=== PATIENT | male | born 1955 | race Caucasian/White ===

== ENCOUNTER 2025-02-28 11:39 | Emergency (ER) | payer OTHER ==
--- OUTSIDE RECORDS SUMMARY | 2025-02-28 11:43 | XMS REPORT | Continuity of Care Document ---
Author Name Unknown Address [address] [place] [address] [facility] Address [address] [place] [address] Care Team Providers Care Plasma Table Operator Name Role Phone SINTIA TILLEY Primary Care Physician Unavailab DR BENEDICT Mix Attending Clinician SINTIA Renae Attending Clinician DR BENEDICT Reyna Admitting Clinician SINTIA Renae Admitting Clinician Unavailable Payers Payer Name Policy Type Policy Number Effective Date Expirati on Date Source MEDICARE - OP [id number] MEDICARE - OP [id number] Encounters Start Date/Time End Date/Time Encounter Type Admission Type Attending Clinicians Care Facility Care Department Encounter ID Source 2024-08-12 07:20:00 2024-08-12 23:00:00 Outpatient [id number] 2024-08-12 07:20:00 2024-08-12 23:00:00 Outpatient [facility] [id number] [facility] karen 2024-08-12 07:20:00 2024-08-12 07:20:00 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 08/12/2024 SNOMED-CT 1.3.6.1.4 .[id number] 1.3.6.1.4.1 .[id number] 2024-01-30 08:05:00 2024-01-30 23:00:00 Outpatient N [facility] [id number] [facility] le 2024-01-20 09:40:00 2024-01-20 23:00:00 Outpatient N [facility] [id number] [facility] Results Test Description Test Time Test Comments Results Result Co mments Source LIVER [id number] 07:26:00* Test Item Value Reference Range Interpretation Comme [facility] TOTAL PROTEIN (test code = T OTAL PROTEIN) 6.7 g/dL 5.8-8.1 ALBUMIN (test code = ALBUMIN) 4.0 g/dL 3.4-4.8 GLOBULIN (test code = GLOBULIN) 2.7 g/dL 1.9-3.7 A/G RATIO (test code = A/G RATIO) 1 U/L 5-34 L TOTAL BILI (test code = 1974-) 0.4 mg/dL 0.2-1.2 DIRECT BILI (test code = 1967-7) 0.1 mg/dL 0.1-0.3 INDIRECT BILI (test code = I NDIRECT BILI) 0.3 mg/dL ALKALINE PHOS (test code = A LKALINE PHOS) 92 U/L 40-150 SGOT/AST (test code = 1920-8) 20 U/L 5-34 SGPT/ALT (test code = 1744-2) 23 U/L 0-55 VITAMIN D 25 [id number] 07:26:00* Test Item Value Reference Range Interpretation Comme [facility] VITAMIN D (test code = 1988-3) 85.6 ng/ml 0-30 H MICROALBUMIN CREATININE [id number] 07:26:00CREAT UR L=0 H=0 MICROALBUMIN L=0 H=0 MICROALBUMIN/CREAT L=0 [id number] 07:26:00SPEC SOURCE: RANDOM COLOR Yellow NORMAL: Straw 5778-6 LOINC CLARITY Clear NORMAL: Clear 5767-9 LOINC SPEC GRAVITY 1.025 1.005 - 1.020 5811-5 LOINC A pH 6.0 5.5 - 7.5 5803-2 LOINC GLUCOSE Negative NORMAL: Negative 5792-7 LOINC BILIRUBIN Negative NORMAL: Negative 5770-3 LOINC KETONE Negative NORMAL: Negative 2514-8 LOINC PROTEIN Negative NORMAL: Negative 90210-1 LOINC NITRITE Negative NORMAL: Negative 5802-4 LOINC BLOOD Small NORMAL: Negative 00002-4 LOINC LEUK EST Trace NORMAL: Negative 5799-2 LOINC UROBILINOGEN 0.2 0.2 - 1.0 mg/dL 73957-8 LOINC MICROSCOPIC See Below WBC 5 - 10 NORMAL: None Seen 5821-4 LOINC RBC 3 - 5 NORMAL: None Seen 77749-6 LOINC EPITHELIAL Rare NORMAL: None Seen BACTERIA Rare/hpf NORMAL: None Seen 23163-6 LOINC MUCOUS 1+ NORMAL: None Seen 8247-9 LOINC A CASTS CRYSTALS TRICHOMONAS NORMAL: None Seen 47701-5 LOINC YEAST NORMAL: None Seen 48533-0 LOINC SPERM NORMAL: None Seen 91471-9 LOINC CULTURE? [id number] 07:26:00* Test Item Value Reference Range Interpretation Comme nts TSH (test code = 75731-1) 2.5805 uIU/mL 0.35-4.94 BASIC [id number] 07:26:00* Test Item Value Reference Range Interpretation Comme nts SODIUM (test code = 2951-2) 141 mmol/L 136-145 POTASSIUM (test code = POTASSIUM) 4.5 mmol/L 3.5-4.5 CHLORIDE (test code = 2075-0) 107 mmol/L 98-107 CO2 (test code = 1963-8) 23 mmol/L 23-31 ANION GAP (test code = ANION GAP) 11 GLUCOSE (test code = 2345-7) 91 mg/dL 80-115 BUN (test code = 3091-6) 24.0 mg/dL 8.4-25.7 CREATININE (test code = 2160-0) 1.0 mg/dL 0.7-1.3 BUN/CREAT (test code = BUN/CREAT) 24 CALCIUM (test code = 28511-1) 9.21 mg/dL 7.8-10.4 AGE (test code = AGE) 69 yrs AFR AMER GFR (test code = AF R AMER GFR) 90 mL/min NON-AA GFR (test code = NON- AA GFR) 75 mL/min [id number] 07:26:00CRP L=0.2 H=0.9SCREENING [id number] 07:26:00* Test Item Value Reference Range Interpretation Comme nts PSA (test code = 74220-4) 0.535 ng/mL 0-4 LIPID [id number] 07:26:00* Test Item Value Reference Range Interpretation Comme nts CHOLESTEROL (test code = 2093-3) 245 mg/dL 0-200 H TRIGLYCERIDES (test code = 2571-8) 160 mg/dL 0-150 H HDL (test code = 2085-9) 32 mg/dL LDL (test code = 41098-2) 181 mg/dL RISK FACTOR (test code = RIS K FACTOR) 7.7 LDL/HDL (test code = LDL/HDL) 6 SEDIMENTATION RATE ([id number] 07:26:00* Test Item Value Reference Range Interpretation Comme nts SED RATE (test code = SED RATE) 21 mm/hr 0-10 H CBC W/AUTO [id number] 07:26:00* Test Item Value Reference Range Interpretation Comme nts WBC (test code = 6690-2) 9.36 x10^3/uL 4.14-11.54 RBC (test code = 17638-4) 5.79 x10^6/mL 3.74-5.82 HEMOGLOBIN (test code = 717-9) 17.4 gm/mL 12-17.2 H HEMATOCRIT (test code = 10534-5) 53.8 % 35.5-49.5 H MCV (test code = 787-2) 92.9 fL 80-97 MCH (test code = 785-6) 30.1 pg 27-31.2 MCHC (test code = MCHC) 32.4 g/dL 31.8-35.4 RDW (test code = 788-0) 12.2 % 11.5-14.4 PLATELETS (test code = 777-3) 254 MPV (test code = 48170-7) 8.8 fL 7.4-10.8 %NEUT (test code = 770-8) 69.3 % 37-80 %LYMPH (test code = 736-9) 20.7 % 10-50 %MONO (test code = 5905-5) 6.6 % 4-8 %EOS (test code = 50937-8) 2.2 % 0-5.7 %BASO (test code = 13612-5) 1.1 % 0.3-1.5 MANUAL DIFF (test code = MAN UAL DIFF) NOT INDICATED RBC MORPH (test code = 6742-1) NOT INDICATED Glycosylated [id number] 01:42:00* Test Item Value Reference Range Interpretation Comme nts HBA1c (test code = HBA1C) 5.3 % 4.8-5.9 N CBC with [id number] 01:40:00* Test Item Value Reference Range Interpretation Comme nts WBC (test code = WBC) 8.1 K/cumm 4.4-10.5 N RBC (test code = RBC) 4.76 M/cumm 4.10-5.70 N Hemoglobin (test code = HGB) 14.9 gm/dL 13.4-17.4 N Hematocrit (test code = HCT) 45.3 % 38.7-52.0 N MCV (test code = MCV) 95.2 fL 80-100 N MCH (test code = MCH) 31.3 pg 27.0-32.5 N MCHC (test code = MCHC) 32.9 g/dL 32.0-37.5 N RDW (test code = RDW) 14.6 % 11.5-14.5 H Platelet Count (test code = PLTCT) 256 K/cumm 140-440 N MPV (test code = MPV) 11.5 fL Diff Method (test code = DIFFM) Auto Neutrophil (test code = NEUT) 65.3 % 36-70 N Lymphocyte (test code = LYMPH) 24.0 % 12-44 N Monocyte (test code = MONO) 6.1 % 0-11 N Eosinophil (test code = EOS) 3.6 % 0-7 N Basophil (test code = BASO) 0.9 % 0-2 N Neutro Abs (test code = ANEUT) 5.3 K/cumm 1.6-7.4 N Lymph Abs (test code = ALYMPH) 1.9 K/cumm 0.5-4.6 N Taney Abs (test code = AMONO) 0.5 K/cumm 0.0-1.2 N Eos Abs (test code = AEOS) 0.29 K/cumm 0.00-0.74 N Baso Abs (test code = ABASO) 0.1 K/cumm 0.00-0.21 N RBC Morphology (test code = RBCMRPH) Not Indicated Macrocytosis (test code = MACRO) Slight Hypochromic (test code = HYPO) Slight Platelet Est (test code = PLTEST) Normal Platelet on Smear Comprehensive Metabolic [id number] 01:27:00* Test Item Value Reference Range Interpretation Comme nts Sodium (test code = NA) 138 mmol/L 135-145 N Potassium (test code = K) 4.4 mmol/L 3.5-5.1 N Chloride (test code = CL) 99 mmol/L 98-105 N Carbon Dioxide (test code = CO2) 25 mmol/L 22-29 N Glucose (test code = GLU) 99 mg/dL 70-115 N Blood Urea Nitrogen (test code = BUN) 21 mg/dL 6-20 H Creatinine (test code = CREAT) 1.0 mg/dL 0.7-1.2 N Calcium (test code = CA) 9.1 mg/dL 8.3-10.5 N Prot Total (test code = TP) 6.8 g/dL 6.4-8.3 N Albumin (test code = ALB) 4.3 g/dL 3.5-5.2 N A/G Ratio (test code = AGRATIO) 1.7 Ratio Globulin (test code = GLOB) 2.5 2.9-3.1 L Bili Total (test code = TBIL) 0.3 mg/dL 0.1-0.9 N Alk Phos (test code = APHOS) 109 U/L 40-129 N AST (test code = AST) 16 U/L 1-40 N ALT (test code = ALT) 19 U/L 1-41 N BUN/Creatinine Ratio (test code = BCRATIO) 21.0 Anion Gap (test code = AGAP) 14 mmol/L 7-16 N Estimated GFR (test code = GFR) >60 mL/min/1.73m2 eGFR (estimated Glomerular Filtration Rate) is an estimated value,calculated from the patient's serum creatinine using the MDRD equation.It is NOT the patient's actual GFR. The eGFR provides a more clinicallyuseful measure of kidney disease than serum creatinine alone.This calculation takes sex and race into account, if the informationis provided. If the race is not provided, and the patient isAfrican-H[place]er, multiply by 1.212. If sex is not provided, and thepatient is female, multiply by 0.742. Results for patients <18 years ofage have not been validated by the MDRD study and should be interpretedwith caution.eGFR Result Interpretation:eGFR > or = 60 is in the Normal RangeeGFR < 60 may mean kidney diseaseeGFR < 15 may mean kidney failureRanges recommended by the National Kidney Foundation,http://nkdep .nih.gov Lipid [id number] 01:27:00* Test Item Value Reference Range Interpretation Comme nts Cholesterol (test code = CHOL) 226 mg/dL 0-200 H Triglycerides (test code = TRIG) 181 mg/dL 9-200 N HDL (test code = HDL) 34 mg/dL 40-60 L Chol/HDL (test code = CHOLPHDL) 6.6 Ratio 0.0-5.0 H LDL, Calculated (test code = LDLC) 156 0-130 H (NOTE)RISK OF HEART DISEASEPublished by Hong Konger Heart AssociationAnalyte Optimal Boderline Increased RiskCHOL <200 200-239 >240TRIG <150 150-199 >200HDL Male: >60 <40HDL Female: >60 <50LDL <100 130-159 >160LDL NEAR OPTIMAL IS 100-129 VLDL (test code = VLDL) 36 mg/dL 5-40 N LDL/HDL (test code = LDLPHDL) 5
--- NOTE | 2025-02-28 14:38 | RAD REPORT ---
EXAMINATION: XR Tib Fib Right CLINICAL INDICATION: Male, 69 years old. PAIN TECHNIQUE: 2 view radiograph of the right tibia and fibula were obtained. COMPARISON: No prior exam. FINDINGS: No evidence of fracture or dislocation. Deformity along the proximal to mid tibia, with a r ounded densely sclerotic focus with marginal lucency measuring 3.9 cm, which may suggest sequelae of prior osteomyelitis or bone infarct, of indeterminate age. Deformities along the distal tibia and fibular shafts, suggestive of healed fractures. No evidence of arthropathy or other focal bone lesion. Soft tissues are unremarkable. IMPRESSION: No acute osseous abnormalities. Chronic findings as above.
[2025-02-28] MEDS ORDERED: ONDANSETRON 4 MG/2 ML VIAL ONE ×2 (15:07→16:01)
[2025-02-28] MEDS ORDERED: FENTANYL CITR 100 MCG/2 ML ONE (15:08)
[2025-02-28] MEDS ORDERED: NA CHLORIDE 0.9% 1,000 ML ONE (15:08)
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
[2025-02-28 15:56] LABS: Absolute Basophils 0.1 K/uL (0-0.5); Absolute Eosinophils 0.3 K/uL (0-0.5); Absolute Lymphocytes (CBC) 1.6 K/uL (0.7-4.9); Absolute Monocytes 0.9 K/uL (0.1-1.3); Absolute Neutrophil 8.8 K/uL (1.8-8.0); Basophils % 0.6 % (0-1.3); Eosinophils % 2.7 % (0-4.4); Hematocrit 48.6 % (39.6-49.0); MCH 29.8 pg (27.0-35.0); MCV 90.4 fL (80-100); MPV 8.7 fL (7.6-11.3); Monocytes % 7.9 % (3.3-12.3); Neutrophils % 74.8 % (41.7-73.7); Nucleated Red Blood Cells % 0.1 % (0-0); Platelets 264 thou/uL (152-406); RBC Red Blood Cell Count 5.38 M/uL (4.33-5.43); Red Cell Distribution Width 14.7 % (12.1-15.2)
[2025-02-28 15:59] LABS: Albumin 3.5 g/dL (3.4-5.0); Albumin/Globulin Ratio 0.7 (1.1-1.8); Anion Gap 7.8 mEq/L (5.0-15.0); Bilirubin Total 0.4 mg/dL (0.2-1.0); Globulin 4.8 g/dL (2.3-3.5); Potassium 3.8 mEq/L (3.5-5.1); Protein, Total 8.3 g/dL (6.4-8.2)
[2025-02-28] MEDS ORDERED: VANCOMYCIN 1 GM/VIAL ONE (16:01)
[2025-02-28] MEDS ORDERED: MORPHINE 4 MG/ML SYR ONE (16:02)
[2025-02-28] MEDS ORDERED: NA CHLORIDE 0.9% 100 ML ONE (16:02)
[2025-02-28] MEDS ORDERED: CEFEPIME 2 GM VIAL ONE (16:02)
[2025-02-28] MEDS ORDERED: NA CHLORIDE 0.9% 250 ML ONE (16:02)
[2025-02-28 18:00] VITALS: TEMP 98.4
[2025-02-28 18:06] VITALS: O2SAT 95
[2025-02-28 18:07] VITALS: BP 169/91
--- NOTE | 2025-02-28 19:35 | RAD REPORT ---
EXAMINATION: US RIGHT LOWER EXTREMITY VENOUS DOPPLER CLINICAL INDICATION: [facility] MAIN right le Pain;Swelling Bed Name: 5 Y TECHNIQUE: Complete bilateral duplex sonography of the RIGHT lower extremity veins was performed. The examination included compression for vein patency, color Doppler imaging and flow augmentation in response to distal compression of the distal external iliac, common femoral, femoral, popliteal, tibi al, and great and small saphenous veins. COMPARISON: No prior exam. FINDINGS: Duplex sonography testing of the veins of the RIGHT lower extremity was performed. Color flow imaging shows all veins to be compressible with [id number] color filling. Pulsatile and phasic flow is present within all lower extremity deep and superficial veins examined. IMPRESSION: No evidence of deep venous thrombosis.
== END 2025-02-28 17:41 | disposition short-term general hospital (02) ==
LOC: ER 11:39
DX: L03.115 Cellulitis of right lower limb (principal)
CPT/HCPCS: 87070; 85025; 36415; 87205; 80053; 73590; 93971; 96375; 96374; 99284; J3010; J3370; J0692; J2405 ×2; J7050; J7030